=== PATIENT | male | born 1985 | race Caucasian/White ===

== ENCOUNTER 2017-03-14 20:39 | Emergency (ER) | payer BC ==
[2017-03-14 20:47] VITALS: BP 138/89
== END 2017-03-14 22:13 | disposition home or self-care (01) ==
LOC: ED 20:39
DX: S62.637A Displaced fracture of distal phalanx of left little finger, initial encounter for closed fracture (principal); X58.XXXA Exposure to other specified factors, initial encounter; Y93.67 Activity, basketball; Y99.8 Other external cause status; Y92.89 Other specified places as the place of occurrence of the external cause